=== PATIENT | male | born 1975 | race Caucasian/White ===

== ENCOUNTER → 2016-04-23 | Outpatient (CLI) | payer OTHER | LOC: MHCPAIN 08:14 | DX: G89.29 Other chronic pain (principal); M47.814 Spondylosis without myelopathy or radiculopathy, thoracic region | CPT/HCPCS: G0463 ==

== ENCOUNTER → 2017-12-31 | Outpatient (CLI) | payer OTHER | LOC: MHCPAIN 12:46 | DX: G89.29 Other chronic pain (principal); M47.817 Spondylosis without myelopathy or radiculopathy, lumbosacral region; M54.16 Radiculopathy, lumbar region; M53.3 Sacrococcygeal disorders, not elsewhere classified; M96.1 Postlaminectomy syndrome, not elsewhere classified; M47.814 Spondylosis without myelopathy or radiculopathy, thoracic region | CPT/HCPCS: G0463 ==

== ENCOUNTER → 2018-01-02 | Outpatient (CLI) | payer OTHER | LOC: MHCPAIN 10:27 | DX: M47.814 Spondylosis without myelopathy or radiculopathy, thoracic region (principal); M54.14 Radiculopathy, thoracic region ==

== ENCOUNTER → 2018-01-07 | Outpatient (CLI) | payer OTHER | LOC: MHCPAIN 12:24 | DX: G89.29 Other chronic pain (principal); M47.817 Spondylosis without myelopathy or radiculopathy, lumbosacral region; M53.3 Sacrococcygeal disorders, not elsewhere classified; M96.1 Postlaminectomy syndrome, not elsewhere classified; M47.814 Spondylosis without myelopathy or radiculopathy, thoracic region | CPT/HCPCS: G0463 ==

== ENCOUNTER → 2018-01-09 | Outpatient (CLI) | payer OTHER | LOC: MHCPAIN 10:31 | DX: M47.814 Spondylosis without myelopathy or radiculopathy, thoracic region (principal); M54.14 Radiculopathy, thoracic region ==

== ENCOUNTER → 2018-02-06 | Outpatient (CLI) | payer OTHER | LOC: MHCPAIN 07:52 | DX: M47.814 Spondylosis without myelopathy or radiculopathy, thoracic region (principal) | CPT/HCPCS: J1100; J2250; J3010 ==

== ENCOUNTER → 2018-02-10 | Outpatient (CLI) | payer OTHER | LOC: MHCPAIN 10:33 | DX: M47.814 Spondylosis without myelopathy or radiculopathy, thoracic region (principal); M54.14 Radiculopathy, thoracic region | CPT/HCPCS: J1100; J2250; J3010 ==

== ENCOUNTER → 2018-04-14 | Outpatient (CLI) | payer OTHER | LOC: MHCPAIN 10:52 | DX: G89.29 Other chronic pain (principal); M47.817 Spondylosis without myelopathy or radiculopathy, lumbosacral region; M53.3 Sacrococcygeal disorders, not elsewhere classified; M96.1 Postlaminectomy syndrome, not elsewhere classified; M47.814 Spondylosis without myelopathy or radiculopathy, thoracic region | CPT/HCPCS: G0463 ==

== ENCOUNTER → 2018-09-09 | Outpatient (CLI) | payer OTHER | LOC: MHCPAIN 11:06 | DX: G89.29 Other chronic pain (principal); M47.817 Spondylosis without myelopathy or radiculopathy, lumbosacral region; M54.16 Radiculopathy, lumbar region; M53.3 Sacrococcygeal disorders, not elsewhere classified; M96.1 Postlaminectomy syndrome, not elsewhere classified; M47.814 Spondylosis without myelopathy or radiculopathy, thoracic region | CPT/HCPCS: G0463 ==

== ENCOUNTER → 2018-09-11 | Outpatient (CLI) | payer OTHER | LOC: MHCPAIN 10:01 | DX: M47.814 Spondylosis without myelopathy or radiculopathy, thoracic region (principal); M54.14 Radiculopathy, thoracic region ==

== ENCOUNTER → 2018-09-18 | Outpatient (CLI) | payer OTHER | LOC: MHCPAIN 10:06 | DX: M47.814 Spondylosis without myelopathy or radiculopathy, thoracic region (principal); M54.14 Radiculopathy, thoracic region | CPT/HCPCS: J1100; J2250; J3010 ==

== ENCOUNTER → 2019-07-21 | Outpatient (CLI) | payer OTHER | LOC: MHCPAIN 09:52 | DX: M47.813 Spondylosis without myelopathy or radiculopathy, cervicothoracic region (principal); M54.6 Pain in thoracic spine; M54.2 Cervicalgia | CPT/HCPCS: G0463; J1040 ==

== ENCOUNTER → 2019-11-17 | Outpatient (CLI) | payer OTHER | LOC: MHCPAIN 09:49 | DX: M47.812 Spondylosis without myelopathy or radiculopathy, cervical region (principal); M54.2 Cervicalgia; M54.6 Pain in thoracic spine; M54.81 Occipital neuralgia | CPT/HCPCS: G0463; J1040 ==

== ENCOUNTER → 2020-04-20 | Outpatient (CLI) | payer OTHER | LOC: MHCPAIN 11:15 | DX: M79.18 Myalgia, other site (principal); M54.5 Low back pain; G89.29 Other chronic pain | CPT/HCPCS: G0463 ==

== ENCOUNTER → 2021-03-22 | Outpatient (CLI) | payer OTHER | LOC: MHCPAIN 08:57 | DX: M79.18 Myalgia, other site (principal); M54.50 Low back pain, unspecified; M53.3 Sacrococcygeal disorders, not elsewhere classified | CPT/HCPCS: G0463 ==